=== PATIENT | female | born 2000 | race Caucasian/White ===

== ENCOUNTER 2018-06-29 13:45 | Emergency (ER) | payer OTHER ==
[2018-06-29 13:56] VITALS: BP 99/60
--- NOTE | 2018-06-29 14:19 | UC ---
Eye Complaint HPI - HPI Summary HPI Summary: 18 yo female presents with right upper eyelid redness, mild swelling, and tenderness for the last 3 days. Also over the last 2 weeks pt has been having intermittent b/l eye drainage and redness. She tells me that she is on accutane and her electric brain wave equipment mechanic told her the styes can be a side effect of this medication. She has been applying warm compresses, but no relief. She does wear contacts at times, but hasn't for the last few weeks due to the above. Denies recent illness, fever, vision changes, sore throat, rash. - History of Current Complaint Chief Complaint: UCEye Stated Complaint: EYE COMPLAINT Time Seen by Provider: 06/29/18 14:18 Hx Obtained From: Patient Onset/Duration: Gradual Onset Severity Initially: Mild Severity Currently: Mild Pain Intensity: 2 Pain Scale Used: 0-10 Numeric - Allergies/Home Medications Allergies/Adverse Reactions: Allergies Allergy/AdvReac Type Severity Reaction Status Date / Time mushroom Allergy Intermediate Itching Verified 06/29/18 13:56 KALE Allergy Intermediate Itching Uncoded 06/29/18 13:56 Home Medications: Home Medications Isotretinoin [Absorica] 30 mg PO BID 06/29/18 [History Confirmed 06/29/18] PMH/Surg Hx/FS Hx/Imm Hx - Additional Past Medical History Additional PMH: Acne - Surgical History Surgical History: Yes Surgery Procedure, Year, and Place: t&a, WISDOM TEETH. - Family History Known Family History: Positive: None - Social History Occupation: Student Lives: Dormitory/Roommates Alcohol Use: Occasionally Substance Use Type: None Smoking Status (MU): Never Smoked Tobacco Review of Systems All Other Systems Reviewed And Are Negative: Yes Constitutional: Positive: Negative Skin: Positive: Negative Eyes: Positive: Drainage, Eye Redness ENT: Positive: Negative Respiratory: Positive: Negative Cardiovascular: Positive: Negative Gastrointestinal: Positive: Negative Neurological: Positive: Negative Psychological: Positive: Negative Physical Exam - Summary Physical Exam Summary: GENERAL: WDWN. No pain distress. SKIN: No rashes, sores, lesions, or open wounds. HEENT: Head: AT/NC Eyes: EOM intact. PERRLA. RIGHT EYE: Conjunctiva with mild erythema and inflammation. Upper eyelid with mild eythema and edema without focal stye. LEFT EYE: Conjunctiva with mild inflammation. No discharge. Nose: NTTP maxillary and frontal sinus. NECK: Supple. Nontender. No lymphadenopathy. CHEST: No accessory muscle use. Breathing comfortably and in no distress. CV: Pulses intact. Cap refill <2seconds NEURO: Alert. PSYCH: Age appropriate behavior. Triage Information Reviewed: Yes Vital Signs: Initial Vital Signs Temp 98.8 F 06/29/18 13:52 Pulse 64 06/29/18 13:52 Resp 18 06/29/18 13:52 BP 99/60 06/29/18 13:52 Pulse Ox 100 06/29/18 13:52 Vital Signs Reviewed: Yes Eye Complaint Course/Dx - Course Course Of Treatment: Suspect stye vs blepharitis. Rx for polytrim and advised to avoid using contacts until resolved. - Differential Dx/Diagnosis Provider Diagnosis: Blepharitis Discharge - Sign-Out/Discharge Documenting (check all that apply): Patient Departure All imaging exams completed and their final reports reviewed: No Studies - Discharge Plan Condition: Stable Disposition: HOME Prescriptions: Polymyx/Trimethoprim OPTH* [Polytrim OPHTH*] 1 drop BOTH EYES QID #1 btl Patient Education Materials: Blepharitis (ED) Referrals: No Primary Care Phys,NOPCP [Primary Care Provider] - Additional Instructions: If you develop a fever, shortness of breath, chest pain, new or worsening symptoms - please call your PCP or go to the ED. - Billing Disposition and Condition Condition: STABLE Disposition: Home - Attestation Statements Provider Attestation: I was available for consult. This patient was seen by the JONATHON. The patient was not presented to, seen by, or examined by me. -Shaji
== END 2018-06-29 14:28 | disposition home or self-care (01) ==
LOC: UCEAST 13:45
DX: H01.001 Unspecified blepharitis right upper eyelid (principal); H57.89 Other specified disorders of eye and adnexa; L70.9 Acne, unspecified; Z91.018 Allergy to other foods; Z79.899 Other long term (current) drug therapy
CPT/HCPCS: 99212; G0463